=== PATIENT | male | born 1975 | race American Indian/Alaskan Native ===

== ENCOUNTER 2017-10-07 09:03 | Emergency (ER) | payer SELFPAY ==
--- NOTE | 2017-10-07 09:37 | Emergency Department Report ---
ED General Adult HPI - General Chief complaint: Altered Mental Status Stated complaint: AMS Time Seen by Provider: 10/07/17 09:26 Source: EMS (ems notes not available at time of chart dictation), RN notes reviewed Mode of arrival: Stretcher Limitations: Other (patient is nonverbal. No family or friends are available for collateral information.) - History of Present Illness Initial comments: This is a young -[place]i gentleman, approximately early 30s, exact age unknown, brought to the hospital by EMS for altered mental status of unknown duration. As per verbal report from nursing staff, patient was found on the road and a hazmat suit for uncertain duration of time and uncertain mechanism. Upon arrival to the ER, the patient is nonverbal, and cannot/will not describe exacerbating or relieving factors, contacts, or radiation. No additional history is available at this time. EMS documentation is not available at this time. -: unknown Quality: other Consistency: other Improves with: other Worsens with: other Associated Symptoms: other - Related Data Allergies Allergy/AdvReac Type Severity Reaction Status Date / Time Unable to Assess Allergy Unverified 10/07/17 09:17 ED Review of Systems ROS: Stated complaint: AMS Other details as noted in HPI Comment: Unobtainable due to pts medical conditions ED Physical Exam - General Limitations: Altered Mental Status General appearance: in no apparent distress - Head Head exam: Present: atraumatic, normocephalic - Eye Eye exam: Present: normal appearance, PERRL - ENT ENT exam: Present: normal exam, normal orophraynx, mucous membranes moist, TM's normal bilaterally, normal external ear exam - Neck Neck exam: Present: normal inspection, full ROM - Respiratory Respiratory exam: Present: normal lung sounds bilaterally. Absent: respiratory distress, chest wall tenderness - Cardiovascular Cardiovascular Exam: Present: regular rate, normal rhythm, normal heart sounds. Absent: bradycardia, tachycardia, irregular rhythm, systolic murmur, diastolic murmur, rubs, gallop - GI/Abdominal GI/Abdominal exam: Present: soft, normal bowel sounds. Absent: distended, tenderness, guarding, rebound, rigid, pulsatile mass - Rectal Rectal exam: Present: normal inspection - exam: Present: normal inspection External exam: Present: normal external exam - Extremities Exam Extremities exam: Present: normal inspection (the compartments are soft. There is no clonus. Downgoing plantar reflexes bilaterally.), full ROM, normal capillary refill, other (2+ pulses noted in the bilateral upper, lower extremities. Compartments soft. No long bony tenderness. The pelvis is stable.). Absent: tenderness, pedal edema, joint swelling, calf tenderness - Back Exam Back exam: Present: normal inspection, full ROM. Absent: tenderness, CVA tenderness (R), paraspinal tenderness, vertebral tenderness - Neurological Exam Neurological exam: Present: altered, other (there is no facial droop. The patient does not follow commands. Unable to assess sensation. Unable to do a full cranial nerve exam secondary to lack of patient cooperation.) - Psychiatric Psychiatric exam: Present: other (non verbal) - Skin Skin exam: Present: warm, dry, intact, normal color. Absent: rash ED Course Vital Signs 10/07/17 10/07/17 10/07/17 09:04 09:11 09:16 Temperature 98.6 F Pulse Rate 94 H 91 H 98 H Respiratory 12 12 24 Rate Blood Pressure 173/109 173/109 O2 Sat by Pulse 98 98 99 Oximetry 10/07/17 10/07/17 10/07/17 09:30 09:46 10:00 Temperature Pulse Rate 101 H 91 H 80 Respiratory 24 18 15 Rate Blood Pressure 173/109 180/117 180/117 O2 Sat by Pulse 99 98 97 Oximetry 10/07/17 10/07/17 10/07/17 10:32 10:46 11:00 Temperature Pulse Rate 123 H 102 H 93 H Respiratory 26 H 30 H 23 Rate Blood Pressure 140/87 157/107 140/87 O2 Sat by Pulse 98 98 98 Oximetry 10/07/17 10/07/17 10/07/17 11:16 11:58 12:20 Temperature Pulse Rate 95 H 92 H Respiratory 33 H 12 Rate Blood Pressure 159/94 O2 Sat by Pulse 99 93 Oximetry 10/07/17 10/07/17 10/07/17 12:30 12:46 13:00 Temperature Pulse Rate 92 H 81 91 H Respiratory 19 15 15 Rate Blood Pressure 132/75 142/111 O2 Sat by Pulse 79 L Oximetry 10/07/17 10/07/17 10/07/17 13:16 13:30 13:46 Temperature Pulse Rate 92 H 81 Respiratory 30 H 12 15 Rate Blood Pressure 142/111 142/88 142/88 O2 Sat by Pulse 99 99 98 Oximetry 10/07/17 10/07/17 10/07/17 14:00 14:16 14:30 Temperature Pulse Rate 94 H Respiratory 19 17 16 Rate Blood Pressure 142/88 137/98 141/96 O2 Sat by Pulse 98 96 96 Oximetry 10/07/17 10/07/17 14:46 15:00 Temperature Pulse Rate 86 Respiratory 18 25 H Rate Blood Pressure 141/96 147/97 O2 Sat by Pulse 99 99 Oximetry - Reevaluation(s) Reevaluation #1: 10/07/17 14:06 The patient holds up 4 extremities to command indefinitely and without difficulty. This is most likely a psychiatric presentation. I have counseled the Hospital physician, Dr. Alena Almendarez, and we agree that the patient does not require inpatient medical workup at this time, but rather psychiatric stabilization for what is most likely a catatonic state. At this point in time, there does not appear to be an immediate medical contraindication to psychiatric admission, consultation, and evaluation ED Medical Decision Making - Lab Data Result diagrams: 10/07/17 09:30 10/07/17 09:30 Differential diagnosis, including but not limited to: Intracranial injury, cervical spine injury, toxic encephalopathy, metabolic encephalopathy, psychosis with schizophrenia Assessment and plan: 31-year-old male who is catatonic and nonverbal. He has no indication of trauma, noncontrast CT scan of the brain, cervical spine negative, his laboratory studies suggest dehydration, and very mild myositis. He is afebrile rectally, with no clonus, does not have rigid compartments, therefore, serotonin syndrome, neuroleptic malignant syndrome very unlikely. He is placed on a 1013 and I highly suspect a psychiatric etiology to his presentation. He is therefore placed on a 1013. - EKG Data -: EKG Interpreted by [facility] EKG shows normal: sinus rhythm - EKG Data When compared to previous EKG there are: previous EKG unavailable 10/07/17 13:11 Normal sinus, 96 bpm, left axis deviation, atrial enlargement, QTC prolonged, not a Stemi - Radiology Data Radiology results: report reviewed, image reviewed Noncontrast CT scan of the brain is negative. Noncontrast CT scan of the cervical spine is negative. Critical care attestation.: If time is entered above; I have spent that time in minutes in the direct care of this critically ill patient, excluding procedure time. 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
[2017-10-07 09:50] LABS: Basophils % (Auto) 0.1 % (0.0-1.8); Hematocrit 50.2 % (35.5-45.6); Hemoglobin 16.9 gm/dl (11.8-15.2); Lymphocytes # (Auto) 0.9 K/mm3 (1.2-5.4); Lymphocytes % (Auto) 7.7 % (13.4-35.0); Mean Corpuscular HGB Conc 34 % (32-34); Mean Corpuscular Hemoglobin 30 pg (28-32); Mean Corpuscular Volume 90 fl (84-94); Monocytes # (Auto) 1.3 K/mm3 (0.0-0.8); Platelet Count 242 K/mm3 (140-440); Red Blood Count 5.56 M/mm3 (3.65-5.03); Red Cell Distribution Width 13.9 % (13.2-15.2)
[2017-10-07 10:00] LABS: INR 1.09 (0.87-1.13)
[2017-10-07 10:01] LABS: Partial Thromboplastin Time 25.3 Sec. (24.2-36.6)
[2017-10-07 10:11] LABS: Alanine Aminotransferase 26 units/L (7-56); Albumin 4.7 g/dL (3.9-5); BUN/Creatinine Ratio 23; Blood Urea Nitrogen 32 mg/dL (9-20); Calcium 9.7 mg/dL (8.4-10.2); Hemolysis Index 20
[2017-10-07] MEDS ORDERED: NACL 0.9% 1000 ML 2,000 ML IV ONE (10:29)
[2017-10-07 10:30] LABS: Bilirubin,Urine NEG (Negative); Blood,Urine LG (Negative); Color,Urine Amber (Yellow); Mucus,Urine FEW /HPF; Urobilinogen,Urine < 2.0 mg/dL (<2.0)
--- NOTE | 2017-10-07 10:35 | Cat Scan Report ---
CT HEAD WITHOUT CONTRAST: HISTORY: Altered mental status. TECHNIQUE: Sequential 2.5mm CT images. COMPARISON: none. FINDINGS: Cerebral Parenchyma: Within normal limits. Cerebellum: Within normal limits. Brainstem: Within normal limits. Ventricles: Normal. Sella: Normal. Extra-axial spaces: Normal. Basal Cisterns: Normal. Intracranial Hemorrhage: None. Midline Shift: None. Calvarium: Normal. Sinuses: Normal. Mastoid Air Cells: Normal. Visualized Orbits: Normal. IMPRESSION: Cranial CT scan within normal limits.
--- NOTE | 2017-10-07 10:36 | Cat Scan Report ---
CT SCAN OF THE CERVICAL SPINE: HISTORY: Altered mental status. TECHNIQUE: Contiguous 1.25 mm axial images of the cervical spine were obtained. Sagittal and coronal reformatted images. FINDINGS: There is normal alignment of the cervical spine. The body, pedicles and posterior ligaments appear normal. No evidence of fracture or subluxation is seen. Mild multilevel degenerative disc disease is noted throughout the cervical region. The facet joints are unremarkable. The spinal canal appears normal. The prevertebral soft tissues appear normal. IMPRESSION: Cervical spondylosis. No acute process is noted.
[2017-10-07 10:41] LABS: Amphetamine Screen,Urine PRESUMPTIVE NEGATIVE; Benzodiazepines Screen,Urine PRESUMPTIVE NEGATIVE; Cannabinoid Screen,Urine PRESUMPTIVE NEGATIVE; Cocaine Screen,Urine PRESUMPTIVE NEGATIVE; Methadone Screen,Urine PRESUMPTIVE NEGATIVE; Opiate Screen,Urine PRESUMPTIVE NEGATIVE
--- NOTE | 2017-10-07 14:07 | Event Note ---
Date: 10/07/17 Patient seen and evaluated Moving all 4 extremities Not talking no cranial nerve abnormalities Labs reviewed Lactic acid nomal on repeat No CVA Dx Conversion reaction versus catatonic Schizophrenia Needs Psychiatric stabilization
[2017-10-07] MEDS ORDERED: HALDOL IM PRN (16:15)
[2017-10-07] MEDS ORDERED: ATIVAN IM PRN (16:15)
--- NOTE | 2017-10-08 16:22 | Consultation ---
History of Present Illness - Reason for Consult Consult date: 10/08/17 Reason for consult: Mental Health Evaluation Requesting physician: CHULA GARCÍA - Chief Complaint Chief complaint: "The patient is nonverbal" - History of Present Psychiatric Illness A young -[place] gentleman, approximately early 30s, exact age unknown, brought to the hospital by EMS for altered mental status of unknown duration. Today the patient is nonverbal and malodorous with a blank stare during the assessment. Per the record, the patient's presentation have not changed since his admission to the ER. Medications and Allergies Allergies Allergy/AdvReac Type Severity Reaction Status Date / Time Unable to Assess Allergy Unverified 10/07/17 09:17 Home Medications Medication Instructions Recorded Confirmed Last Taken Type Unobtainable 10/07/17 10/07/17 Unknown History Active Meds: Active Medications Haloperidol Lactate (Haldol) 5 mg IM Q6HR PRN PRN Reason: Agitation Last Admin: 10/07/17 16:47 Dose: 5 mg Lorazepam (Ativan) 2 mg IM Q4HR PRN PRN Reason: Agitation Last Admin: 10/07/17 16:40 Dose: 2 mg Past psychiatric history - Past Medical History Past Medical History: other (Unable to obtain) Past Surgical History: Other (Unable to obtain) - past Psychiatric treatment and history psychiatric treatment history: Unable to obtain a psy hx or a fam psy hx - Social History Social history: other (Unable to obtain) Mental Status Exam - Vital signs Last Vital Signs Temp 98.2 F 10/08/17 09:48 Pulse 113 H 10/08/17 09:48 Resp 20 10/08/17 09:48 BP 164/101 10/08/17 09:48 Pulse Ox 95 10/08/17 09:48 - Exam Narrative exam: Unable to complete the MSE because of the patient's condition. Results Result Diagrams: 10/07/17 09:30 10/07/17 09:30 All other labs normal. Assessment and Plan Assessment and plan: Impression: Catatonia. Today the patient is nonverbal with a blank stare during the assessment. UDS is negative DDx: Psychotic/Mood DO Recommendation/Plan: Continue 1013 with placement to inpatient psy services. Start Ativan 1 mg IM TOD for catatonia.
[2017-10-09] MEDS: ATIVAN IM SCH ×4 (06:05→20:08)
--- NOTE | 2017-10-09 16:33 | Event Note ---
Date: 10/09/17 The patient's heart rate today has been under 100 bpm. The definition of sinus tachycardia as a heart rate of greater than 100. As a young human being with intrinsic variations in human physiology, it is medically acceptable for the patient to have variations in his vital signs. Given his tachycardia has resolved, and that he is hemodynamically stable, I would consider his variation in vital signs, including intermittent resolved tachycardia, to be part of normal human physiology. The patient's muscular compartments are soft. His CPK of 700 does not meet the definition criteria of rhabdomyolysis. This is typically a CK of greater than 5000. In addition to his renal function is within normal limits. Vital Signs 10/07/17 10/07/17 10/07/17 09:04 09:11 09:16 Temperature 98.6 F Pulse Rate 94 H 91 H 98 H Respiratory 12 12 24 Rate Blood Pressure 173/109 173/109 Blood Pressure [Right] O2 Sat by Pulse 98 98 99 Oximetry 10/07/17 10/07/17 10/07/17 09:30 09:46 10:00 Temperature Pulse Rate 101 H 91 H 80 Respiratory 24 18 15 Rate Blood Pressure 173/109 180/117 180/117 Blood Pressure [Right] O2 Sat by Pulse 99 98 97 Oximetry 10/07/17 10/07/17 10/07/17 10:32 10:46 11:00 Temperature Pulse Rate 123 H 102 H 93 H Respiratory 26 H 30 H 23 Rate Blood Pressure 140/87 157/107 140/87 Blood Pressure [Right] O2 Sat by Pulse 98 98 98 Oximetry 10/07/17 10/07/17 10/07/17 11:16 11:58 12:20 Temperature Pulse Rate 95 H 92 H Respiratory 33 H 12 Rate Blood Pressure 159/94 Blood Pressure [Right] O2 Sat by Pulse 99 93 Oximetry 10/07/17 10/07/17 10/07/17 12:30 12:46 13:00 Temperature Pulse Rate 92 H 81 91 H Respiratory 19 15 15 Rate Blood Pressure 132/75 142/111 Blood Pressure [Right] O2 Sat by Pulse 79 L Oximetry 10/07/17 10/07/17 10/07/17 13:16 13:30 13:46 Temperature Pulse Rate 92 H 81 Respiratory 30 H 12 15 Rate Blood Pressure 142/111 142/88 142/88 Blood Pressure [Right] O2 Sat by Pulse 99 99 98 Oximetry 10/07/17 10/07/17 10/07/17 14:00 14:16 14:30 Temperature Pulse Rate 94 H Respiratory 19 17 16 Rate Blood Pressure 142/88 137/98 141/96 Blood Pressure [Right] O2 Sat by Pulse 98 96 96 Oximetry 10/07/17 10/07/17 10/07/17 14:46 15:00 16:01 Temperature Pulse Rate 86 105 H Respiratory 18 25 H 20 Rate Blood Pressure 141/96 147/97 180/102 Blood Pressure [Right] O2 Sat by Pulse 99 99 94 Oximetry 10/07/17 10/07/17 10/08/17 21:00 22:00 09:48 Temperature 98.2 F Pulse Rate 102 H 113 H Respiratory 20 22 20 Rate Blood Pressure Blood Pressure 150/97 164/101 [Right] O2 Sat by Pulse 94 98 95 Oximetry 10/08/17 10/08/17 10/09/17 20:00 23:00 10:57 Temperature 98.6 F 98.6 F Pulse Rate 97 H 91 H Respiratory 14 18 20 Rate Blood Pressure Blood Pressure 141/88 131/92 [Right] O2 Sat by Pulse 99 98 98 Oximetry Lab Results 10/07/17 10/07/17 10/07/17 Range/Units 09:27 09:27 09:30 WBC 11.9 H (4.5-11.0) K/mm3 RBC 5.56 H (3.65-5.03) M/mm3 Hgb 16.9 H (11.8-15.2) gm/dl Hct 50.2 H (35.5-45.6) % MCV 90 (84-94) fl MCH 30 (28-32) pg MCHC 34 (32-34) % RDW 13.9 (13.2-15.2) % Plt Count 242 (140-440) K/mm3 Lymph % (Auto) 7.7 L (13.4-35.0) % [place] % (Auto) 11.0 H (0.0-7.3) % Eos % (Auto) 0.0 (0.0-4.3) % Baso % (Auto) 0.1 (0.0-1.8) % Lymph # 0.9 L (1.2-5.4) K/mm3 [place] # 1.3 H (0.0-0.8) K/mm3 Eos # 0.0 (0.0-0.4) K/mm3 Baso # 0.0 (0.0-0.1) K/mm3 Seg Neutrophils % 81.2 H (40.0-70.0) % Seg Neutrophils # 9.7 H (1.8-7.7) K/mm3 PT (12.2-14.9) Sec. INR (0.87-1.13) APTT (24.2-36.6) Sec. Sodium (137-145) mmol/L Potassium (3.6-5.0) mmol/L Chloride (98-107) mmol/L Carbon Dioxide (22-30) mmol/L Anion Gap mmol/L BUN (9-20) mg/dL Creatinine (0.8-1.5) mg/dL Estimated GFR ml/min BUN/Creatinine Ratio % Glucose (75-100) mg/dL Lactic Acid (0.7-2.0) mmol/L Calcium (8.4-10.2) mg/dL Total Bilirubin (0.1-1.2) mg/dL AST (5-40) units/L ALT (7-56) units/L Alkaline Phosphatase (35-129) units/L Ammonia (25-60) umol/L Total Creatine Kinase (55-170) units/L Troponin T (0.00-0.029) ng/mL Total Protein (6.3-8.2) g/dL Albumin (3.9-5) g/dL Albumin/Globulin Ratio % Urine Color [place] (Yellow) Urine Turbidity Hazy (Clear) Urine pH 5.0 (5.0-7.0) Ur Specific Jones 1.033 H (1.003-1.030) Urine Protein 100 mg/dl (Negative) mg/dL Urine Glucose (UA) Neg (Negative) mg/dL Urine Ketones 20 (Negative) mg/dL Urine Blood Lg (Negative) Urine Nitrite Neg (Negative) Urine Bilirubin Neg (Negative) Urine Urobilinogen < 2.0 (<2.0) mg/dL Ur Leukocyte Esterase Neg (Negative) Urine WBC (Auto) 5.0 (0.0-6.0) /HPF Urine RBC (Auto) 125.0 (0.0-6.0) /HPF U Epithel Cells (Auto) < 1.0 (0-13.0) /HPF Urine Mucus Few /HPF Salicylates (2.8-20.0) mg/dL Urine Opiates Screen Presumptive negative Urine Methadone Screen Presumptive negative Acetaminophen (10.0-30.0) ug/mL Ur Barbiturates Screen Presumptive negative Free Phenytoin (1.0-2.0) mg/L Valproic Acid (50-100) ug/mL Ur Phencyclidine Scrn Presumptive negative Ur Amphetamines Screen Presumptive negative U Benzodiazepines Scrn Presumptive negative [place] (0.0-1.2) mmol/L Urine Cocaine Screen Presumptive negative U Marijuana (THC) Screen Presumptive negative Drugs of Abuse Note Disclamer Plasma/Serum Alcohol (0-0.07) % 10/07/17 10/07/17 10/07/17 Range/Units 09:30 09:30 09:30 WBC (4.5-11.0) K/mm3 RBC (3.65-5.03) M/mm3 Hgb (11.8-15.2) gm/dl Hct (35.5-45.6) % MCV (84-94) fl MCH (28-32) pg MCHC (32-34) % RDW (13.2-15.2) % Plt Count (140-440) K/mm3 Lymph % (Auto) (13.4-35.0) % [place] % (Auto) (0.0-7.3) % Eos % (Auto) (0.0-4.3) % Baso % (Auto) (0.0-1.8) % Lymph # (1.2-5.4) K/mm3 [place] # (0.0-0.8) K/mm3 Eos # (0.0-0.4) K/mm3 Baso # (0.0-0.1) K/mm3 Seg Neutrophils % (40.0-70.0) % Seg Neutrophils # (1.8-7.7) K/mm3 PT 14.7 (12.2-14.9) Sec. INR 1.09 (0.87-1.13) APTT 25.3 (24.2-36.6) Sec. Sodium 146 H (137-145) mmol/L Potassium 3.8 (3.6-5.0) mmol/L Chloride 103.9 (98-107) mmol/L Carbon Dioxide 22 (22-30) mmol/L Anion Gap 24 mmol/L BUN 32 H (9-20) mg/dL Creatinine 1.4 (0.8-1.5) mg/dL Estimated GFR 59 ml/min BUN/Creatinine Ratio 23 % Glucose 109 H (75-100) mg/dL Lactic Acid 3.70 H* (0.7-2.0) mmol/L Calcium 9.7 (8.4-10.2) mg/dL Total Bilirubin 1.00 (0.1-1.2) mg/dL AST 33 (5-40) units/L ALT 26 (7-56) units/L Alkaline Phosphatase 85 (35-129) units/L Ammonia (25-60) umol/L Total Creatine Kinase (55-170) units/L Troponin T < 0.010 (0.00-0.029) ng/mL Total Protein 8.3 H (6.3-8.2) g/dL Albumin 4.7 (3.9-5) g/dL Albumin/Globulin Ratio 1.3 % Urine Color (Yellow) Urine Turbidity (Clear) Urine pH (5.0-7.0) Ur Specific [place] (1.003-1.030) Urine Protein (Negative) mg/dL Urine Glucose (UA) (Negative) mg/dL Urine Ketones (Negative) mg/dL Urine Blood (Negative) Urine Nitrite (Negative) Urine Bilirubin (Negative) Urine Urobilinogen (<2.0) mg/dL Ur Leukocyte Esterase (Negative) Urine WBC (Auto) (0.0-6.0) /HPF Urine RBC (Auto) (0.0-6.0) /HPF U Epithel Cells (Auto) (0-13.0) /HPF Urine Mucus /HPF Salicylates (2.8-20.0) mg/dL Urine Opiates Screen Urine Methadone Screen Acetaminophen (10.0-30.0) ug/mL Ur Barbiturates Screen Free Phenytoin (1.0-2.0) mg/L Valproic Acid (50-100) ug/mL Ur Phencyclidine Scrn Ur Amphetamines Screen U Benzodiazepines Scrn [place] (0.0-1.2) mmol/L Urine Cocaine Screen U Marijuana (THC) Screen Drugs of Abuse Note Plasma/Serum Alcohol (0-0.07) % 08/06/18 08/06/18 08/06/18 Range/Units 09:30 09:30 09:30 WBC (4.5-11.0) K/mm3 RBC (3.65-5.03) M/mm3 Hgb (11.8-15.2) gm/dl Hct (35.5-45.6) % MCV (84-94) fl MCH (28-32) pg MCHC (32-34) % RDW (13.2-15.2) % Plt Count (140-440) K/mm3 Lymph % (Auto) (13.4-35.0) % [place] % (Auto) (0.0-7.3) % Eos % (Auto) (0.0-4.3) % Baso % (Auto) (0.0-1.8) % Lymph # (1.2-5.4) K/mm3 [place] # (0.0-0.8) K/mm3 Eos # (0.0-0.4) K/mm3 Baso # (0.0-0.1) K/mm3 Seg Neutrophils % (40.0-70.0) % Seg Neutrophils # (1.8-7.7) K/mm3 PT (12.2-14.9) Sec. INR (0.87-1.13) APTT (24.2-36.6) Sec. Sodium (137-145) mmol/L Potassium (3.6-5.0) mmol/L Chloride (98-107) mmol/L Carbon Dioxide (22-30) mmol/L Anion Gap mmol/L BUN (9-20) mg/dL Creatinine (0.8-1.5) mg/dL Estimated GFR ml/min BUN/Creatinine Ratio % Glucose (75-100) mg/dL Lactic Acid (0.7-2.0) mmol/L Calcium (8.4-10.2) mg/dL Total Bilirubin (0.1-1.2) mg/dL AST (5-40) units/L ALT (7-56) units/L Alkaline Phosphatase (35-129) units/L Ammonia (25-60) umol/L Total Creatine Kinase (55-170) units/L Troponin T (0.00-0.029) ng/mL Total Protein (6.3-8.2) g/dL Albumin (3.9-5) g/dL Albumin/Globulin Ratio % Urine Color (Yellow) Urine Turbidity (Clear) Urine pH (5.0-7.0) Ur Specific [place] (1.003-1.030) Urine Protein (Negative) mg/dL Urine Glucose (UA) (Negative) mg/dL Urine Ketones (Negative) mg/dL Urine Blood (Negative) Urine Nitrite (Negative) Urine Bilirubin (Negative) Urine Urobilinogen (<2.0) mg/dL Ur Leukocyte Esterase (Negative) Urine WBC (Auto) (0.0-6.0) /HPF Urine RBC (Auto) (0.0-6.0) /HPF U Epithel Cells (Auto) (0-13.0) /HPF Urine Mucus /HPF Salicylates < 0.3 L (2.8-20.0) mg/dL Urine Opiates Screen Urine Methadone Screen Acetaminophen < 5.0 L (10.0-30.0) ug/mL Ur Barbiturates Screen Free Phenytoin (1.0-2.0) mg/L Valproic Acid < 2.8 L (50-100) ug/mL Ur Phencyclidine Scrn Ur Amphetamines Screen U Benzodiazepines Scrn [place] 0.1 (0.0-1.2) mmol/L Urine Cocaine Screen U Marijuana (THC) Screen Drugs of Abuse Note Plasma/Serum Alcohol < 0.01 (0-0.07) % 10/07/17 10/07/17 10/07/17 Range/Units 09:30 09:30 09:49 WBC (4.5-11.0) K/mm3 RBC (3.65-5.03) M/mm3 Hgb (11.8-15.2) gm/dl Hct (35.5-45.6) % MCV (84-94) fl MCH (28-32) pg MCHC (32-34) % RDW (13.2-15.2) % Plt Count (140-440) K/mm3 Lymph % (Auto) (13.4-35.0) % [place] % (Auto) (0.0-7.3) % Eos % (Auto) (0.0-4.3) % Baso % (Auto) (0.0-1.8) % Lymph # (1.2-5.4) K/mm3 [place] # (0.0-0.8) K/mm3 Eos # (0.0-0.4) K/mm3 Baso # (0.0-0.1) K/mm3 Seg Neutrophils % (40.0-70.0) % Seg Neutrophils # (1.8-7.7) K/mm3 PT (12.2-14.9) Sec. INR (0.87-1.13) APTT (24.2-36.6) Sec. Sodium (137-145) mmol/L Potassium (3.6-5.0) mmol/L Chloride (98-107) mmol/L Carbon Dioxide (22-30) mmol/L Anion Gap mmol/L BUN (9-20) mg/dL Creatinine (0.8-1.5) mg/dL Estimated GFR ml/min BUN/Creatinine Ratio % Glucose (75-100) mg/dL Lactic Acid (0.7-2.0) mmol/L Calcium (8.4-10.2) mg/dL Total Bilirubin (0.1-1.2) mg/dL AST (5-40) units/L ALT (7-56) units/L Alkaline Phosphatase (35-129) units/L Ammonia 38.0 (25-60) umol/L Total Creatine Kinase 775 H (55-170) units/L Troponin T (0.00-0.029) ng/mL Total Protein (6.3-8.2) g/dL Albumin (3.9-5) g/dL Albumin/Globulin Ratio % Urine Color (Yellow) Urine Turbidity (Clear) Urine pH (5.0-7.0) Ur Specific [place] (1.003-1.030) Urine Protein (Negative) mg/dL Urine Glucose (UA) (Negative) mg/dL Urine Ketones (Negative) mg/dL Urine Blood (Negative) Urine Nitrite (Negative) Urine Bilirubin (Negative) Urine Urobilinogen (<2.0) mg/dL Ur Leukocyte Esterase (Negative) Urine WBC (Auto) (0.0-6.0) /HPF Urine RBC (Auto) (0.0-6.0) /HPF U Epithel Cells (Auto) (0-13.0) /HPF Urine Mucus /HPF Salicylates (2.8-20.0) mg/dL Urine Opiates Screen Urine Methadone Screen Acetaminophen (10.0-30.0) ug/mL Ur Barbiturates Screen Free Phenytoin <0.5 L (1.0-2.0) mg/L Valproic Acid (50-100) ug/mL Ur Phencyclidine Scrn Ur Amphetamines Screen U Benzodiazepines Scrn [place] (0.0-1.2) mmol/L Urine Cocaine Screen U Marijuana (THC) Screen Drugs of Abuse Note Plasma/Serum Alcohol (0-0.07) % 10/07/17 Range/Units 12:21 WBC (4.5-11.0) K/mm3 RBC (3.65-5.03) M/mm3 Hgb (11.8-15.2) gm/dl Hct (35.5-45.6) % MCV (84-94) fl MCH (28-32) pg MCHC (32-34) % RDW (13.2-15.2) % Plt Count (140-440) K/mm3 Lymph % (Auto) (13.4-35.0) % [place] % (Auto) (0.0-7.3) % Eos % (Auto) (0.0-4.3) % Baso % (Auto) (0.0-1.8) % Lymph # (1.2-5.4) K/mm3 [place] # (0.0-0.8) K/mm3 Eos # (0.0-0.4) K/mm3 Baso # (0.0-0.1) K/mm3 Seg Neutrophils % (40.0-70.0) % Seg Neutrophils # (1.8-7.7) K/mm3 PT (12.2-14.9) Sec. INR (0.87-1.13) APTT (24.2-36.6) Sec. Sodium (137-145) mmol/L Potassium (3.6-5.0) mmol/L Chloride (98-107) mmol/L Carbon Dioxide (22-30) mmol/L Anion Gap mmol/L BUN (9-20) mg/dL Creatinine (0.8-1.5) mg/dL Estimated GFR ml/min BUN/Creatinine Ratio % Glucose (75-100) mg/dL Lactic Acid 1.70 (0.7-2.0) mmol/L Calcium (8.4-10.2) mg/dL Total Bilirubin (0.1-1.2) mg/dL AST (5-40) units/L ALT (7-56) units/L Alkaline Phosphatase (35-129) units/L Ammonia (25-60) umol/L Total Creatine Kinase (55-170) units/L Troponin T (0.00-0.029) ng/mL Total Protein (6.3-8.2) g/dL Albumin (3.9-5) g/dL Albumin/Globulin Ratio % Urine Color (Yellow) Urine Turbidity (Clear) Urine pH (5.0-7.0) Ur Specific [place] (1.003-1.030) Urine Protein (Negative) mg/dL Urine Glucose (UA) (Negative) mg/dL Urine Ketones (Negative) mg/dL Urine Blood (Negative) Urine Nitrite (Negative) Urine Bilirubin (Negative) Urine Urobilinogen (<2.0) mg/dL Ur Leukocyte Esterase (Negative) Urine WBC (Auto) (0.0-6.0) /HPF Urine RBC (Auto) (0.0-6.0) /HPF U Epithel Cells (Auto) (0-13.0) /HPF Urine Mucus /HPF Salicylates (2.8-20.0) mg/dL Urine Opiates Screen Urine Methadone Screen Acetaminophen (10.0-30.0) ug/mL Ur Barbiturates Screen Free Phenytoin (1.0-2.0) mg/L Valproic Acid (50-100) ug/mL Ur Phencyclidine Scrn Ur Amphetamines Screen U Benzodiazepines Scrn [place] (0.0-1.2) mmol/L Urine Cocaine Screen U Marijuana (THC) Screen Drugs of Abuse Note Plasma/Serum Alcohol (0-0.07) %
--- NOTE | 2017-10-09 18:14 | Progress Note ---
Subjective - Reason for Consult Consult date: 10/09/17 Reason for consult: Psychiatric Follow-up Evaluation - Chief Complaint Chief complaint: "You tell me" Patient is a 42 male who presents to the emergency room by EMS for altered mental status of unknown duration. Today the patient presents cooperative but irritated during the assessment. Thought content is impoverished. He states, "I don't know why I am here. You tell me? I was doing what I do and they brought me here." Patient verbalized that he was sitting down on the sidewalk when he was approached by the fake police." Patient denies any past psychiatric history. He reports good appetite and sleep. Patient denies suicidal/homicidal ideations, auditory/visual hallucinations, and delusions. Current Psychiatric Medications: Patient denies. None reported. Past Psychiatric History: Patient has no past psychiatric history; no previous inpatient psychiatric hospitalizations; no outpatient psychiatrist; no previous suicide attempts. History of Trauma/Abuse: Patient denies sexual, physical, and mental abuse. Drugs/Alcohol Abuse History: Patient denies drug/alcohol abuse history. UDS negative. Social History: 9th grade; homeless; 3 children; single; no source of income; pending legal issues; poor support system. Family History: Patient denies family psychiatric illnesses or substance abuse. Mental Status Exam - Vital signs Last Vital Signs Temp 98.6 F 10/09/17 10:57 Pulse 91 H 10/09/17 10:57 Resp 20 10/09/17 10:57 BP 131/92 10/09/17 10:57 Pulse Ox 98 10/09/17 10:57 - Exam Narrative exam: Mental Status Exam General Appearance: Causally Dressed-hospital gown Eye Contact: Intermittent Orientation: Alert and oriented x 3 ( person, place, and date) Attitude/Behavior: Cooperative Sensorium: Distracted Psychomotor & Musculoskeletal Activity: Ambulatory Mood: "I don't know." Anxious and irritable. Affect: Constricted Speech/Language: Regular rate and tone. Thought Processes: Circumstantial Thought Content: Reality oriented. Patient denies delusions. ( ?) Perception: Patient denies A/V/t hallucinations. (?) Concentration/Attention: Impaired Suicidal Ideations/Plan: Patient denies. Homicidal Ideations/Plan: Patient denies. Insight: Variable Judgment: Variable Assessment and Plan Impression: Catatonia. Today the patient is calm and cooperative during the assessment. He denies Si/HI, A/VH, and delusions. UDS is negative DDx: Psychotic/Mood DO Recommendation/Plan: 1. Continue 1013 with placement to inpatient psychiatric services. Gain collateral to determine proper disposition. 2. Continue Ativan 1 mg IM TID for catatonia. 3. Will start Zyprexa 5mg po QHS mood/psychosis. Discussed metabolic side effects. 4. Monitor mood, psychosis, sleep, appetite, compliance, catatonia, and side effects.
[2017-10-10] MEDS: ATIVAN IM SCH (08:25)
--- NOTE | 2017-10-10 11:56 | Progress Note ---
Subjective - Reason for Consult Consult date: 10/10/17 Reason for consult: Psychiatry Follow-up - Chief Complaint Chief complaint: "Why am I here" Patient is a 42 male who presents to the emergency room by EMS for altered mental status of unknown duration. Today the patient is calm. but guarded during the assessment. His answers to several questions were not logical. He stated that he came to the [place] area from [place] to visit his brother 2 weeks ago. He stated that his brother isn't aware that he's in the [place] area. I asked the patient would he like for staff to call his brother, he stated, "I will do that." He he would not confirm or deny being homeless. He denies SI/HI' s and VH's. He paused and wouldn't answer if he is hearing voices. No indications of side effects of his medication. Mental Status Exam - Vital signs Last Vital Signs Temp 98.1 F 10/10/17 10:58 Pulse 91 H 10/09/17 20:00 Resp 18 10/10/17 10:58 BP 132/107 10/10/17 10:58 Pulse Ox 98 10/10/17 10:58 - Exam Narrative exam: MSE: Appearance: calm Behavior: regular eye contact Speech: regular rate and tone Mood: irritated, guarded Affect: congruent to mood Thought Process: disorganized Thought Content: denies SI/HI's and AVH's Motor Activity: sitting up in bed Cognition: A/O x 3 Insight: poor Judgment: poor Assessment and Plan Impression: Unspecified Psychosis. Catatonia on admission. Today the patient is calm, but guarded during the assessment. UDS is negative DDx: R/O Bipolar DO, R/O Schizophrenia Recommendation/Plan: Continue 1013 with placement to inpatient psy services. Continue Zyprexa 5 mg PO HS for psychosis/mood. Attempted to discuss possible metabolic side effects of Zyprexa with the patient.
[2017-10-11 09:03] LABS: Alanine Aminotransferase 88 units/L (7-56); BUN/Creatinine Ratio 16; Blood Urea Nitrogen 16 mg/dL (9-20); Calcium 9.2 mg/dL (8.4-10.2); Hemolysis Index 9
--- NOTE | 2017-10-11 13:03 | Progress Note ---
Subjective - Reason for Consult Reason for consult: disorganzied - Chief Complaint Chief complaint: Subjectively: Patient appears more organized today. Patient does not appear to be having significant motor abnormalities on examination. Patient reported that he is okay with going to [facility] which is a program for homeless people to get on their feet and start getting employment again. Per my discussion with him, patient was fairly inappropriate with respect to understanding that [place] he was [address]. Patient notes that he is walk that far previously and has also walked [place] state [place]. In having a discussion about how this may be inappropriate, patient did not find this unusual. Furthermore, patient notes that he was found in picked up on the streets of [place] secondary to him meditating on a sidewalk. When I informed him that this might appear strange to people on the street and/or the police, patient notes that he was not doing anything inappropriate and did not find anything inappropriate with behaviors. Patient does lack a certain level of insight and judgment when he comes out he is being perceived when engaging in such behaviors. Mental status examination: This is a 42-year-old male dressed in hospital gown and otherwise appears mildly malodorous with limited hygiene. Patient not exhibiting any significant motor abnormality on examination and has a stable gait. Appears somewhat withdrawn and constricted with clear coherent speech that was mostly logical and goal-directed with some mild loose associations and perseverations. He was devoid of suicidal homicidal thoughts and no psychosis with respect to auditory visual hallucinations was noted. His concentration and attention were intact as evidenced by being able to attend to and answer my questions clearly. Memory appeared mildly disruptive this patient was unable to narrate a clear coherent story of his arrival to the ER. Insight remains fairly limited as patient is unable to understand how his behaviors might have been perceived as being not socially acceptable. Judgment remain somewhat impaired. ADLs are limited. Plan: Continue Zyprexa Continue Ativan Continue 1013 and transfer patient to inpatient psychiatric facility when possible for further evaluation and stabilization. Consider obtaining a new CK level to ensure that is normalized Continue to ensure the patient remains fairly well hydrated Mental Status Exam - Vital signs Last Vital Signs Temp 98.5 F 10/11/17 11:42 Pulse 93 H 10/11/17 11:42 Resp 16 10/11/17 11:42 BP 120/76 10/11/17 11:42 Pulse Ox 97 08/10/18 11:30
--- NOTE | 2017-10-12 17:19 | Progress Note ---
Subjective - Reason for Consult Consult date: 10/12/17 Reason for consult: follow up - Chief Complaint Chief complaint: "I was meditating on the sidewalk." Patient is a 42 male who presents to the emergency room by EMS for altered mental status of unknown duration. Today the patient is calm. but guarded during the assessment. He stated he has eastern restorationism beliefs and meditation is required. He says he was doing this on [facility] when he was told he had to go to the hospital. He denies all psychiatric complaints. He states he could see how meditating on the sidewalk could be viewed as unusual. He has been refusing further lab work. He denies being informed why he needed it again. Once explained, he asked appropriate questions. He states he does not want his blood drawn at this time but would think about it. He states he would like to go to [facility]. He expressed understanding of being on 1013 and the plan for hospitalization. He states he does not need it. He is completing his ADLs. He reports eating and drinking water without difficulty. Mental Status Exam - Vital signs Last Vital Signs Temp 98.7 F 10/12/17 10:40 Pulse 73 10/12/17 10:40 Resp 18 10/12/17 10:42 BP 113/89 10/12/17 10:40 Pulse Ox 98 10/12/17 10:42 - Exam Narrative exam: MSE: Appearance: calm Behavior: regular eye contact Speech: regular rate and tone Mood: irritable, guarded Affect: flat Thought Process: linear Thought Content: denies SI/HI and AVH Motor Activity: sitting up in bed Cognition: A/O x 3 Insight: poor Judgment: poor Assessment and Plan Impression: Unspecified Psychosis. Catatonic symptoms on admission. UDS is negative. V/S are normal and he is completing his ADLs. He reports eating and drinking water without difficulty. DDx: R/O Bipolar DO, R/O Schizophrenia Recommendation/Plan: Continue 1013 with placement to inpatient psy services. Continue Zyprexa He was recommended to have his blood drawn for repeat ck/lfts. He declines but says he will think about it he was encouraged to have adequate fluid intake
--- NOTE | 2017-10-13 21:25 | Progress Note ---
Subjective - Reason for Consult Consult date: 10/13/17 Reason for consult: follow up - Chief Complaint Chief complaint: "I want to go to [facility]." Patient is a 42 male who presents to the emergency room by EMS for altered mental status of unknown duration. Today the patient is calm. but guarded during the assessment. He talked about how he went to his brother's house but it was locked. He states he does not live there. He then states he was resting on the sidewalk and was "meditating." He states he could understand how that would seem odd. He denies all psychiatric complaints. He states he would like to go to [facility] transitional program. He expressed understanding of being on 1013 and the plan for hospitalization. He asked appropriate questions about the process and disposition. He states he does not need it. He is completing his ADLs. He reports eating and drinking water without difficulty. Mental Status Exam - Vital signs Last Vital Signs Temp 98.6 F 10/13/17 09:36 Pulse 73 10/13/17 09:36 Resp 20 10/13/17 09:36 BP 142/96 10/13/17 09:36 Pulse Ox 100 10/13/17 09:36 - Exam Narrative exam: MSE: Appearance: calm Behavior: regular eye contact Speech: regular rate and tone Mood: irritable, guarded Affect: flat Thought Process: linear Thought Content: denies SI/HI and AVH Motor Activity: ambulatory Cognition: A/O x 3 Insight: fair Judgment: fair Assessment and Plan Impression: Unspecified Psychosis. Catatonic symptoms on admission. UDS is negative. V/S are normal and he is completing his ADLs. He reports eating and drinking water without difficulty. DDx: R/O Bipolar DO, R/O Schizophrenia Recommendation/Plan: Reevaluate in 24 hours to determine if he continues to meet criteria for 1013 Continue Zyprexa He was recommended to have his blood drawn for repeat ck/lfts. he was encouraged to have adequate fluid intake
[2017-10-14] MEDS ORDERED: ATIVAN IM PRN (07:35)
[2017-10-14 10:21] VITALS: BP 127/55
[2017-10-14 10:52] LABS: Alanine Aminotransferase 61 units/L (7-56); Albumin 3.8 g/dL (3.9-5)
--- NOTE | 2017-10-14 10:53 | Progress Note ---
Subjective - Reason for Consult Consult date: 10/14/17 Reason for consult: Psychiatry Follow-up - Chief Complaint Chief complaint: "I want to go to [facility]." Patient is a 42 male who presents to the emergency room by EMS for altered mental status of unknown duration. Today the patient is calm and cooperative during the assessment. He stated that he want to use resources at [facility] once discharged. He stated that he plan to reach out to his brother for support. He denies SI/HI's and AVH's. He acknowledged eating and drinking without difficulty. Per the record, no behavioral disturbances overnight. Mental Status Exam - Vital signs Last Vital Signs Temp 98.1 F 10/14/17 10:00 Pulse 83 10/14/17 10:00 Resp 18 10/14/17 10:00 BP 127/55 10/14/17 10:00 Pulse Ox 99 10/14/17 10:00 - Exam Narrative exam: MSE: Appearance: calm, cooperative Behavior: regular eye contact Speech: regular rate and tone Mood: "okay" Affect: congruent to mood Thought Process: logical Thought Content: denies SI/HI's and AVH's Motor Activity: sitting up in bed Cognition: A/O x 3 Insight: fair Judgment: fair Assessment and Plan Impression: Unspecified Psychosis. Catatonia on admission. Today the patient is calm and cooperative during the assessment. UDS is negative DDx: R/O Bipolar DO, R/O Schizophrenia Recommendation/Plan: Rescind 1013. Continue Zyprexa 5 mg PO HS for psychosis/ mood. Attempted to discuss possible metabolic side effects of Zyprexa with the patient. The patient can follow-up with [facility] for outpatient psy services. Also, the patient plan to use resources at [facility]. Case Mgmt involvement, the patient may need placement.
[2017-10-14 11:24] LABS: Bilirubin,Direct < 0.2 mg/dL (0-0.2)
[2017-10-14 11:36] LABS: BUN/Creatinine Ratio 12; Blood Urea Nitrogen 11 mg/dL (9-20); Calcium 9.2 mg/dL (8.4-10.2); Hemolysis Index 7
--- NOTE | 2017-10-14 14:08 | Event Note ---
Date: 10/14/17 The patient is currently alert and oriented 3, clinically sober, walking with a steady gait and has no complaints at this time. His 1013 has been discontinued by psychiatry. His creatinine kinase is 1100, and his muscular compartments are soft with normal renal function. This creatinine kinase will decrease with oral hydration, does not require IV hydration. The patient indicates he is going to walk to his brother's house, and he indicates that he knows how to get there, and he is also being cleared by psychiatry. The patient has been observed in the ER for days without clinical decompensation. He is medically suitable for discharge at this point in time. Vital Signs 10/07/17 10/07/17 10/07/17 09:04 09:11 09:16 Temperature 98.6 F Pulse Rate 94 H 91 H 98 H Respiratory 12 12 24 Rate Blood Pressure 173/109 173/109 Blood Pressure [Right] O2 Sat by Pulse 98 98 99 Oximetry 10/07/17 10/07/17 10/07/17 09:30 09:46 10:00 Temperature Pulse Rate 101 H 91 H 80 Respiratory 24 18 15 Rate Blood Pressure 173/109 180/117 180/117 Blood Pressure [Right] O2 Sat by Pulse 99 98 97 Oximetry 10/07/17 10/07/17 10/07/17 10:32 10:46 11:00 Temperature Pulse Rate 123 H 102 H 93 H Respiratory 26 H 30 H 23 Rate Blood Pressure 140/87 157/107 140/87 Blood Pressure [Right] O2 Sat by Pulse 98 98 98 Oximetry 10/07/17 10/07/17 10/07/17 11:16 11:58 12:20 Temperature Pulse Rate 95 H 92 H Respiratory 33 H 12 Rate Blood Pressure 159/94 Blood Pressure [Right] O2 Sat by Pulse 99 93 Oximetry 10/07/17 10/07/17 10/07/17 12:30 12:46 13:00 Temperature Pulse Rate 92 H 81 91 H Respiratory 19 15 15 Rate Blood Pressure 132/75 142/111 Blood Pressure [Right] O2 Sat by Pulse 79 L Oximetry 10/07/17 10/07/17 10/07/17 13:16 13:30 13:46 Temperature Pulse Rate 92 H 81 Respiratory 30 H 12 15 Rate Blood Pressure 142/111 142/88 142/88 Blood Pressure [Right] O2 Sat by Pulse 99 99 98 Oximetry 10/07/17 10/07/17 10/07/17 14:00 14:16 14:30 Temperature Pulse Rate 94 H Respiratory 19 17 16 Rate Blood Pressure 142/88 137/98 141/96 Blood Pressure [Right] O2 Sat by Pulse 98 96 96 Oximetry 10/07/17 10/07/17 10/07/17 14:46 15:00 16:01 Temperature Pulse Rate 86 105 H Respiratory 18 25 H 20 Rate Blood Pressure 141/96 147/97 180/102 Blood Pressure [Right] O2 Sat by Pulse 99 99 94 Oximetry 10/07/17 10/07/17 10/08/17 21:00 22:00 09:48 Temperature 98.2 F Pulse Rate 102 H 113 H Respiratory 20 22 20 Rate Blood Pressure Blood Pressure 150/97 164/101 [Right] O2 Sat by Pulse 94 98 95 Oximetry 10/08/17 10/08/17 10/09/17 20:00 23:00 10:57 Temperature 98.6 F 98.6 F Pulse Rate 97 H 91 H Respiratory 14 18 20 Rate Blood Pressure Blood Pressure 141/88 131/92 [Right] O2 Sat by Pulse 99 98 98 Oximetry 10/09/17 10/10/17 10/10/17 20:00 10:58 22:00 Temperature 98.7 F 98.1 F 98.5 F Pulse Rate 91 H 95 H Respiratory 18 18 18 Rate Blood Pressure Blood Pressure 139/94 132/107 130/92 [Right] O2 Sat by Pulse 99 98 97 Oximetry 10/11/17 10/11/17 10/12/17 11:30 11:42 10:40 Temperature 98.5 F 98.7 F Pulse Rate 93 H 73 Respiratory 18 16 18 Rate Blood Pressure Blood Pressure 120/76 113/89 [Right] O2 Sat by Pulse 97 97 Oximetry 10/12/17 10/12/17 10/13/17 10:42 19:30 09:36 Temperature 98.7 F 98.6 F Pulse Rate 95 H 73 Respiratory 18 17 20 Rate Blood Pressure Blood Pressure 167/111 142/96 [Right] O2 Sat by Pulse 98 99 100 Oximetry 10/13/17 10/14/17 21:12 10:00 Temperature 98.6 F 98.1 F Pulse Rate 82 83 Respiratory 17 18 Rate Blood Pressure Blood Pressure 164/98 127/55 [Right] O2 Sat by Pulse 99 99 Oximetry Lab Results 10/07/17 10/07/17 10/07/17 Range/Units 09:27 09:27 09:30 WBC 11.9 H (4.5-11.0) K/mm3 RBC 5.56 H (3.65-5.03) M/mm3 Hgb 16.9 H (11.8-15.2) gm/dl Hct 50.2 H (35.5-45.6) % MCV 90 (84-94) fl MCH 30 (28-32) pg MCHC 34 (32-34) % RDW 13.9 (13.2-15.2) % Plt Count 242 (140-440) K/mm3 Lymph % (Auto) 7.7 L (13.4-35.0) % Fisher % (Auto) 11.0 H (0.0-7.3) % Eos % (Auto) 0.0 (0.0-4.3) % Baso % (Auto) 0.1 (0.0-1.8) % Lymph # 0.9 L (1.2-5.4) K/mm3 Fisher # 1.3 H (0.0-0.8) K/mm3 Eos # 0.0 (0.0-0.4) K/mm3 Baso # 0.0 (0.0-0.1) K/mm3 Seg Neutrophils % 81.2 H (40.0-70.0) % Seg Neutrophils # 9.7 H (1.8-7.7) K/mm3 PT (12.2-14.9) Sec. INR (0.87-1.13) APTT (24.2-36.6) Sec. Sodium (137-145) mmol/L Potassium (3.6-5.0) mmol/L Chloride (98-107) mmol/L Carbon Dioxide (22-30) mmol/L Anion Gap mmol/L BUN (9-20) mg/dL Creatinine (0.8-1.5) mg/dL Estimated GFR ml/min BUN/Creatinine Ratio % Glucose (75-100) mg/dL Lactic Acid (0.7-2.0) mmol/L Calcium (8.4-10.2) mg/dL Total Bilirubin (0.1-1.2) mg/dL Direct Bilirubin (0-0.2) mg/dL Indirect Bilirubin mg/dL AST (5-40) units/L ALT (7-56) units/L Alkaline Phosphatase (35-129) units/L Ammonia (25-60) umol/L Total Creatine Kinase (55-170) units/L Troponin T (0.00-0.029) ng/mL Total Protein (6.3-8.2) g/dL Albumin (3.9-5) g/dL Albumin/Globulin Ratio % Urine Color [place] (Yellow) Urine Turbidity Hazy (Clear) Urine pH 5.0 (5.0-7.0) Ur Specific Rhine 1.033 H (1.003-1.030) Urine Protein 100 mg/dl (Negative) mg/dL Urine Glucose (UA) Neg (Negative) mg/dL Urine Ketones 20 (Negative) mg/dL Urine Blood Lg (Negative) Urine Nitrite Neg (Negative) Urine Bilirubin Neg (Negative) Urine Urobilinogen < 2.0 (<2.0) mg/dL Ur Leukocyte Esterase Neg (Negative) Urine WBC (Auto) 5.0 (0.0-6.0) /HPF Urine RBC (Auto) 125.0 (0.0-6.0) /HPF U Epithel Cells (Auto) < 1.0 (0-13.0) /HPF Urine Mucus Few /HPF Salicylates (2.8-20.0) mg/dL Urine Opiates Screen Presumptive negative Urine Methadone Screen Presumptive negative Acetaminophen (10.0-30.0) ug/mL Ur Barbiturates Screen Presumptive negative Free Phenytoin (1.0-2.0) mg/L Valproic Acid (50-100) ug/mL Ur Phencyclidine Scrn Presumptive negative Ur Amphetamines Screen Presumptive negative U Benzodiazepines Scrn Presumptive negative Otho (0.0-1.2) mmol/L Urine Cocaine Screen Presumptive negative U Marijuana (THC) Screen Presumptive negative Drugs of Abuse Note Disclamer Plasma/Serum Alcohol (0-0.07) % 10/07/17 10/07/17 10/07/17 Range/Units 09:30 09:30 09:30 WBC (4.5-11.0) K/mm3 RBC (3.65-5.03) M/mm3 Hgb (11.8-15.2) gm/dl Hct (35.5-45.6) % MCV (84-94) fl MCH (28-32) pg MCHC (32-34) % RDW (13.2-15.2) % Plt Count (140-440) K/mm3 Lymph % (Auto) (13.4-35.0) % Fisher % (Auto) (0.0-7.3) % Eos % (Auto) (0.0-4.3) % Baso % (Auto) (0.0-1.8) % Lymph # (1.2-5.4) K/mm3 Fisher # (0.0-0.8) K/mm3 Eos # (0.0-0.4) K/mm3 Baso # (0.0-0.1) K/mm3 Seg Neutrophils % (40.0-70.0) % Seg Neutrophils # (1.8-7.7) K/mm3 PT 14.7 (12.2-14.9) Sec. INR 1.09 (0.87-1.13) APTT 25.3 (24.2-36.6) Sec. Sodium 146 H (137-145) mmol/L Potassium 3.8 (3.6-5.0) mmol/L Chloride 103.9 (98-107) mmol/L Carbon Dioxide 22 (22-30) mmol/L Anion Gap 24 mmol/L BUN 32 H (9-20) mg/dL Creatinine 1.4 (0.8-1.5) mg/dL Estimated GFR 59 ml/min BUN/Creatinine Ratio 23 % Glucose 109 H (75-100) mg/dL Lactic Acid 3.70 H* (0.7-2.0) mmol/L Calcium 9.7 (8.4-10.2) mg/dL Total Bilirubin 1.00 (0.1-1.2) mg/dL Direct Bilirubin (0-0.2) mg/dL Indirect Bilirubin mg/dL AST 33 (5-40) units/L ALT 26 (7-56) units/L Alkaline Phosphatase 85 (35-129) units/L Ammonia (25-60) umol/L Total Creatine Kinase (55-170) units/L Troponin T < 0.010 (0.00-0.029) ng/mL Total Protein 8.3 H (6.3-8.2) g/dL Albumin 4.7 (3.9-5) g/dL Albumin/Globulin Ratio 1.3 % Urine Color (Yellow) Urine Turbidity (Clear) Urine pH (5.0-7.0) Ur Specific Rhine (1.003-1.030) Urine Protein (Negative) mg/dL Urine Glucose (UA) (Negative) mg/dL Urine Ketones (Negative) mg/dL Urine Blood (Negative) Urine Nitrite (Negative) Urine Bilirubin (Negative) Urine Urobilinogen (<2.0) mg/dL Ur Leukocyte Esterase (Negative) Urine WBC (Auto) (0.0-6.0) /HPF Urine RBC (Auto) (0.0-6.0) /HPF U Epithel Cells (Auto) (0-13.0) /HPF Urine Mucus /HPF Salicylates (2.8-20.0) mg/dL Urine Opiates Screen Urine Methadone Screen Acetaminophen (10.0-30.0) ug/mL Ur Barbiturates Screen Free Phenytoin (1.0-2.0) mg/L Valproic Acid (50-100) ug/mL Ur Phencyclidine Scrn Ur Amphetamines Screen U Benzodiazepines Scrn Otho (0.0-1.2) mmol/L Urine Cocaine Screen U Marijuana (THC) Screen Drugs of Abuse Note Plasma/Serum Alcohol (0-0.07) % 10/07/17 10/07/17 10/07/17 Range/Units 09:30 09:30 09:30 WBC (4.5-11.0) K/mm3 RBC (3.65-5.03) M/mm3 Hgb (11.8-15.2) gm/dl Hct (35.5-45.6) % MCV (84-94) fl MCH (28-32) pg MCHC (32-34) % RDW (13.2-15.2) % Plt Count (140-440) K/mm3 Lymph % (Auto) (13.4-35.0) % Fisher % (Auto) (0.0-7.3) % Eos % (Auto) (0.0-4.3) % Baso % (Auto) (0.0-1.8) % Lymph # (1.2-5.4) K/mm3 Fisher # (0.0-0.8) K/mm3 Eos # (0.0-0.4) K/mm3 Baso # (0.0-0.1) K/mm3 Seg Neutrophils % (40.0-70.0) % Seg Neutrophils # (1.8-7.7) K/mm3 PT (12.2-14.9) Sec. INR (0.87-1.13) APTT (24.2-36.6) Sec. Sodium (137-145) mmol/L Potassium (3.6-5.0) mmol/L Chloride (98-107) mmol/L Carbon Dioxide (22-30) mmol/L Anion Gap mmol/L BUN (9-20) mg/dL Creatinine (0.8-1.5) mg/dL Estimated GFR ml/min BUN/Creatinine Ratio % Glucose (75-100) mg/dL Lactic Acid (0.7-2.0) mmol/L Calcium (8.4-10.2) mg/dL Total Bilirubin (0.1-1.2) mg/dL Direct Bilirubin (0-0.2) mg/dL Indirect Bilirubin mg/dL AST (5-40) units/L ALT (7-56) units/L Alkaline Phosphatase (35-129) units/L Ammonia (25-60) umol/L Total Creatine Kinase (55-170) units/L Troponin T (0.00-0.029) ng/mL Total Protein (6.3-8.2) g/dL Albumin (3.9-5) g/dL Albumin/Globulin Ratio % Urine Color (Yellow) Urine Turbidity (Clear) Urine pH (5.0-7.0) Ur Specific Rhine (1.003-1.030) Urine Protein (Negative) mg/dL Urine Glucose (UA) (Negative) mg/dL Urine Ketones (Negative) mg/dL Urine Blood (Negative) Urine Nitrite (Negative) Urine Bilirubin (Negative) Urine Urobilinogen (<2.0) mg/dL Ur Leukocyte Esterase (Negative) Urine WBC (Auto) (0.0-6.0) /HPF Urine RBC (Auto) (0.0-6.0) /HPF U Epithel Cells (Auto) (0-13.0) /HPF Urine Mucus /HPF Salicylates < 0.3 L (2.8-20.0) mg/dL Urine Opiates Screen Urine Methadone Screen Acetaminophen < 5.0 L (10.0-30.0) ug/mL Ur Barbiturates Screen Free Phenytoin (1.0-2.0) mg/L Valproic Acid < 2.8 L (50-100) ug/mL Ur Phencyclidine Scrn Ur Amphetamines Screen U Benzodiazepines Scrn Otho 0.1 (0.0-1.2) mmol/L Urine Cocaine Screen U Marijuana (THC) Screen Drugs of Abuse Note Plasma/Serum Alcohol < 0.01 (0-0.07) % 10/07/17 10/07/17 10/07/17 Range/Units 09:30 09:30 09:49 WBC (4.5-11.0) K/mm3 RBC (3.65-5.03) M/mm3 Hgb (11.8-15.2) gm/dl Hct (35.5-45.6) % MCV (84-94) fl MCH (28-32) pg MCHC (32-34) % RDW (13.2-15.2) % Plt Count (140-440) K/mm3 Lymph % (Auto) (13.4-35.0) % Fisher % (Auto) (0.0-7.3) % Eos % (Auto) (0.0-4.3) % Baso % (Auto) (0.0-1.8) % Lymph # (1.2-5.4) K/mm3 Fisher # (0.0-0.8) K/mm3 Eos # (0.0-0.4) K/mm3 Baso # (0.0-0.1) K/mm3 Seg Neutrophils % (40.0-70.0) % Seg Neutrophils # (1.8-7.7) K/mm3 PT (12.2-14.9) Sec. INR (0.87-1.13) APTT (24.2-36.6) Sec. Sodium (137-145) mmol/L Potassium (3.6-5.0) mmol/L Chloride (98-107) mmol/L Carbon Dioxide (22-30) mmol/L Anion Gap mmol/L BUN (9-20) mg/dL Creatinine (0.8-1.5) mg/dL Estimated GFR ml/min BUN/Creatinine Ratio % Glucose (75-100) mg/dL Lactic Acid (0.7-2.0) mmol/L Calcium (8.4-10.2) mg/dL Total Bilirubin (0.1-1.2) mg/dL Direct Bilirubin (0-0.2) mg/dL Indirect Bilirubin mg/dL AST (5-40) units/L ALT (7-56) units/L Alkaline Phosphatase (35-129) units/L Ammonia 38.0 (25-60) umol/L Total Creatine Kinase 775 H (55-170) units/L Troponin T (0.00-0.029) ng/mL Total Protein (6.3-8.2) g/dL Albumin (3.9-5) g/dL Albumin/Globulin Ratio % Urine Color (Yellow) Urine Turbidity (Clear) Urine pH (5.0-7.0) Ur Specific Rhine (1.003-1.030) Urine Protein (Negative) mg/dL Urine Glucose (UA) (Negative) mg/dL Urine Ketones (Negative) mg/dL Urine Blood (Negative) Urine Nitrite (Negative) Urine Bilirubin (Negative) Urine Urobilinogen (<2.0) mg/dL Ur Leukocyte Esterase (Negative) Urine WBC (Auto) (0.0-6.0) /HPF Urine RBC (Auto) (0.0-6.0) /HPF U Epithel Cells (Auto) (0-13.0) /HPF Urine Mucus /HPF Salicylates (2.8-20.0) mg/dL Urine Opiates Screen Urine Methadone Screen Acetaminophen (10.0-30.0) ug/mL Ur Barbiturates Screen Free Phenytoin <0.5 L (1.0-2.0) mg/L Valproic Acid (50-100) ug/mL Ur Phencyclidine Scrn Ur Amphetamines Screen U Benzodiazepines Scrn Otho (0.0-1.2) mmol/L Urine Cocaine Screen U Marijuana (THC) Screen Drugs of Abuse Note Plasma/Serum Alcohol (0-0.07) % 10/07/17 10/11/17 10/14/17 Range/Units 12:21 08:37 10:09 WBC (4.5-11.0) K/mm3 RBC (3.65-5.03) M/mm3 Hgb (11.8-15.2) gm/dl Hct (35.5-45.6) % MCV (84-94) fl MCH (28-32) pg MCHC (32-34) % RDW (13.2-15.2) % Plt Count (140-440) K/mm3 Lymph % (Auto) (13.4-35.0) % Fisher % (Auto) (0.0-7.3) % Eos % (Auto) (0.0-4.3) % Baso % (Auto) (0.0-1.8) % Lymph # (1.2-5.4) K/mm3 Fisher # (0.0-0.8) K/mm3 Eos # (0.0-0.4) K/mm3 Baso # (0.0-0.1) K/mm3 Seg Neutrophils % (40.0-70.0) % Seg Neutrophils # (1.8-7.7) K/mm3 PT (12.2-14.9) Sec. INR (0.87-1.13) APTT (24.2-36.6) Sec. Sodium 141 139 (137-145) mmol/L Potassium 3.4 L 3.6 (3.6-5.0) mmol/L Chloride 101.8 99.3 (98-107) mmol/L Carbon Dioxide 27 26 (22-30) mmol/L Anion Gap 16 17 mmol/L BUN 16 11 (9-20) mg/dL Creatinine 1.0 0.9 (0.8-1.5) mg/dL Estimated GFR > 60 > 60 ml/min BUN/Creatinine Ratio 16 12 % Glucose 129 H 100 (75-100) mg/dL Lactic Acid 1.70 (0.7-2.0) mmol/L Calcium 9.2 9.2 (8.4-10.2) mg/dL Total Bilirubin 0.70 (0.1-1.2) mg/dL Direct Bilirubin (0-0.2) mg/dL Indirect Bilirubin mg/dL AST 165 H (5-40) units/L ALT 88 H (7-56) units/L Alkaline Phosphatase 71 (35-129) units/L Ammonia (25-60) umol/L Total Creatine Kinase 1133 H (55-170) units/L Troponin T (0.00-0.029) ng/mL Total Protein 7.2 (6.3-8.2) g/dL Albumin 4.0 (3.9-5) g/dL Albumin/Globulin Ratio 1.3 % Urine Color (Yellow) Urine Turbidity (Clear) Urine pH (5.0-7.0) Ur Specific Rhine (1.003-1.030) Urine Protein (Negative) mg/dL Urine Glucose (UA) (Negative) mg/dL Urine Ketones (Negative) mg/dL Urine Blood (Negative) Urine Nitrite (Negative) Urine Bilirubin (Negative) Urine Urobilinogen (<2.0) mg/dL Ur Leukocyte Esterase (Negative) Urine WBC (Auto) (0.0-6.0) /HPF Urine RBC (Auto) (0.0-6.0) /HPF U Epithel Cells (Auto) (0-13.0) /HPF Urine Mucus /HPF Salicylates (2.8-20.0) mg/dL Urine Opiates Screen Urine Methadone Screen Acetaminophen (10.0-30.0) ug/mL Ur Barbiturates Screen Free Phenytoin (1.0-2.0) mg/L Valproic Acid (50-100) ug/mL Ur Phencyclidine Scrn Ur Amphetamines Screen U Benzodiazepines Scrn Otho (0.0-1.2) mmol/L Urine Cocaine Screen U Marijuana (THC) Screen Drugs of Abuse Note Plasma/Serum Alcohol (0-0.07) % 10/14/17 Range/Units 10:09 WBC (4.5-11.0) K/mm3 RBC (3.65-5.03) M/mm3 Hgb (11.8-15.2) gm/dl Hct (35.5-45.6) % MCV (84-94) fl MCH (28-32) pg MCHC (32-34) % RDW (13.2-15.2) % Plt Count (140-440) K/mm3 Lymph % (Auto) (13.4-35.0) % Fisher % (Auto) (0.0-7.3) % Eos % (Auto) (0.0-4.3) % Baso % (Auto) (0.0-1.8) % Lymph # (1.2-5.4) K/mm3 Fisher # (0.0-0.8) K/mm3 Eos # (0.0-0.4) K/mm3 Baso # (0.0-0.1) K/mm3 Seg Neutrophils % (40.0-70.0) % Seg Neutrophils # (1.8-7.7) K/mm3 PT (12.2-14.9) Sec. INR (0.87-1.13) APTT (24.2-36.6) Sec. Sodium (137-145) mmol/L Potassium (3.6-5.0) mmol/L Chloride (98-107) mmol/L Carbon Dioxide (22-30) mmol/L Anion Gap mmol/L BUN (9-20) mg/dL Creatinine (0.8-1.5) mg/dL Estimated GFR ml/min BUN/Creatinine Ratio % Glucose (75-100) mg/dL Lactic Acid (0.7-2.0) mmol/L Calcium (8.4-10.2) mg/dL Total Bilirubin 0.40 (0.1-1.2) mg/dL Direct Bilirubin < 0.2 (0-0.2) mg/dL Indirect Bilirubin 0.2 mg/dL AST 51 H (5-40) units/L ALT 61 H (7-56) units/L Alkaline Phosphatase 68 (35-129) units/L Ammonia (25-60) umol/L Total Creatine Kinase (55-170) units/L Troponin T (0.00-0.029) ng/mL Total Protein 6.9 (6.3-8.2) g/dL Albumin 3.8 L (3.9-5) g/dL Albumin/Globulin Ratio 1.2 % Urine Color (Yellow) Urine Turbidity (Clear) Urine pH (5.0-7.0) Ur Specific Rhine (1.003-1.030) Urine Protein (Negative) mg/dL Urine Glucose (UA) (Negative) mg/dL Urine Ketones (Negative) mg/dL Urine Blood (Negative) Urine Nitrite (Negative) Urine Bilirubin (Negative) Urine Urobilinogen (<2.0) mg/dL Ur Leukocyte Esterase (Negative) Urine WBC (Auto) (0.0-6.0) /HPF Urine RBC (Auto) (0.0-6.0) /HPF U Epithel Cells (Auto) (0-13.0) /HPF Urine Mucus /HPF Salicylates (2.8-20.0) mg/dL Urine Opiates Screen Urine Methadone Screen Acetaminophen (10.0-30.0) ug/mL Ur Barbiturates Screen Free Phenytoin (1.0-2.0) mg/L Valproic Acid (50-100) ug/mL Ur Phencyclidine Scrn Ur Amphetamines Screen U Benzodiazepines Scrn Otho (0.0-1.2) mmol/L Urine Cocaine Screen U Marijuana (THC) Screen Drugs of Abuse Note Plasma/Serum Alcohol (0-0.07) %
== END 2017-10-14 14:30 | disposition home or self-care (01) ==
LOC: ED 09:03 → EEVIPCON 09:03 → EDBD 09:03 → ED 10-14 14:30
DX: F31.9 Bipolar disorder, unspecified (principal); F20.9 Schizophrenia, unspecified
CPT/HCPCS: 36415; 70450; 72125; 80048; 80053; 80074; 80164; 80178; 80186; 80307; 81001; 82140; 82550; 84484; 85025; 85610; 85730; 93005; 93010; 96360; 96361; 96372; 99285; G0480; J1630; J2060; J7030; 80320